=== PATIENT | male | born 1960 | race Two or more races ===

== ENCOUNTER 2022-08-14 12:59 | Emergency (ER) | payer OTHER ==
[~2022-08-14] VITALS: Ht 177.8 cm; Wt 103.0 kg
[2022-08-14] MEDS ORDERED: METFORMIN HCL1000 M2 PO (13:52)
[2022-08-14] MEDS ORDERED: LIPITOR20 MG PO (13:53)
[2022-08-14] MEDS ORDERED: LOSARTAN-HCTZ1 EACH PO (13:54)
[2022-08-14] MEDS ORDERED: ZESTRIL30 MG PO (14:02)
[2022-08-14] MEDS ORDERED: HYDROCHLOROTH12.5 MG PO (14:03)
== END 2022-08-14 19:22 | disposition home or self-care (01) ==
LOC: ER 12:59
DX: H93.19 Tinnitus, unspecified ear (principal); E11.65 Type 2 diabetes mellitus with hyperglycemia; Z79.84 Long term (current) use of oral hypoglycemic drugs; I10 Essential (primary) hypertension